=== PATIENT | female | born 1990 | race American Indian/Alaskan Native ===

== ENCOUNTER 2019-06-14 22:54 | Emergency (ER) | payer OTHER ==
[2019-06-14 23:06] VITALS: BP 114/66
[2019-06-14] MEDS ORDERED: IBUPROFEN 800 MG TAB PO ONE (23:30)
--- NOTE | 2019-06-15 00:37 | Emergency Department Report ---
ED Extremity Problem HPI - General Chief complaint: Extremity Injury, Lower Stated complaint: ANKLE INJURY Time Seen by Provider: 06/14/19 23:42 Source: patient Mode of arrival: Wheelchair Limitations: No Limitations - History of Present Illness Initial comments: 28-year-old female presents pain to her left ankle after twisting it while playing with her kids musa. MD Complaint: joint swelling, joint paint -: This evening Location: left, other (ankle) History of Same: No Radiation: none Severity scale (0 -10): 4 Quality: aching Consistency: constant Improves with: nothing Worsens with: weight bearing, walking, palpation Associated Symptoms: denies other symptoms - Related Data Previous Rx's Medication Instructions Recorded Last Taken Type Naproxen [Naprosyn] 500 mg PO BID #20 tablet 06/15/19 Unknown Rx traMADol [Ultram] 50 mg PO Q6HR PRN #7 tablet 06/15/19 Unknown Rx Allergies Allergy/AdvReac Type Severity Reaction Status Date / Time No Known Allergies Allergy Unverified 06/14/19 23:30 ED Review of Systems ROS: Stated complaint: ANKLE INJURY Other details as noted in HPI Comment: All other systems reviewed and negative Musculoskeletal: as per HPI Neurological: paresthesias ED Past Medical Hx - Past Medical History Previous Medical History?: No - Surgical History Past Surgical History?: No - Social History Smoking Status: Never Smoker Substance Use Type: None - Medications Home Medications: Home Medications Medication Instructions Recorded Confirmed Last Taken Type Naproxen [Naprosyn] 500 mg PO BID #20 tablet 06/15/19 Unknown Rx traMADol [Ultram] 50 mg PO Q6HR PRN #7 tablet 06/15/19 Unknown Rx ED Physical Exam - General Limitations: No Limitations General appearance: alert, in no apparent distress - Head Head exam: Present: atraumatic, normocephalic - Eye Eye exam: Present: normal appearance - ENT ENT exam: Present: mucous membranes moist - Neck Neck exam: Present: normal inspection - Respiratory Respiratory exam: Present: normal lung sounds bilaterally. Absent: respiratory distress - Cardiovascular Cardiovascular Exam: Present: regular rate, normal rhythm - GI/Abdominal GI/Abdominal exam: Absent: distended - Extremities Exam Extremities exam: Present: other (moderate swelling to the left ankle, tender to palpation, able to move toes, DP pulses intact, cap refill normal, gross sensation intact) - Neurological Exam Neurological exam: Present: alert, oriented X3. Absent: motor sensory deficit - Psychiatric Psychiatric exam: Present: normal affect, normal mood - Skin Skin exam: Present: warm, dry, intact, normal color ED Course Vital Signs 06/14/19 23:05 Temperature 98.5 F Pulse Rate 96 H Respiratory 18 Rate Blood Pressure 114/66 [Left] O2 Sat by Pulse 99 Oximetry ED Medical Decision Making - Radiology Data Radiology results: report reviewed, image reviewed - Differential Diagnosis sprain, fracture Critical care attestation.: If time is entered above; I have spent that time in minutes in the direct care of this critically ill patient, excluding procedure time. ED Disposition Clinical Impression: Left ankle sprain Disposition: TO HOME OR SELFCARE Is pt being admited?: No Condition: Stable Instructions: Ankle Sprain (ED) Prescriptions: Naproxen [Naprosyn] 500 mg PO BID #20 tablet traMADol [Ultram] 50 mg PO Q6HR PRN #7 tablet PRN Reason: Pain Referrals: TITO BEAL MD [Staff Physician] - 3-5 Days Time of Disposition: :
[2019-06-15] MEDS ORDERED: HYDROcodone/ACETAMINOPHEN 5-325 MG TAB PO ONE (01:00)
--- NOTE | 2019-06-15 01:09 | XRay Report ---
Left ankle 3 views [id number] INDICATION: Left ankle pain COMPARISON: None FINDINGS: Prominent lateral soft tissue swelling is seen. No fractures or dislocations are noted cassie palacios Signer Name: Chele Israel MD Signed: 06/15/2019 1:04 AM Workstation Name: [id number]
== END 2019-06-15 01:55 | disposition home or self-care (01) ==
LOC: ED 22:54
DX: S93.402A Sprain of unspecified ligament of left ankle, initial encounter (principal); Z79.899 Other long term (current) drug therapy; X50.0XXA Overexertion from strenuous movement or load, initial encounter; Y93.89 Activity, other specified; Y92.89 Other specified places as the place of occurrence of the external cause; Y99.8 Other external cause status